=== PATIENT | female | born 1985 | race Caucasian/White ===

== ENCOUNTER → 2016-07-24 | Outpatient (CLI) | payer MEDICAID ==
[~2016-07-24] MED LIST: BIRTH CONTROL PO; DOCU100C37 PO; FAMO20TA3 PO; FERR-84 PO; HYDR-3812 PO; IBUP-1773 PO; PREN1TAB79 PO
--- NOTE | 2016-07-24 17:05 | Diagnostic Imaging Report ---
INDICATION: anatomical evaluation. TECHNIQUE: Multiple real-time grayscale images were obtained of the gravid uterus. CORRELATION STUDY: None. FINDINGS: Cervical length is 4.3 cm. Placenta is anterior and without evidence for previa. Fetus is currently in breech presentation. Normal amount of amniotic fluid appears to be within normal limits. anatomical evaluation is unremarkable. Biometrical measurements are as follows: Biparietal diameter 4.78 cm, age 20 weeks 4 days. Head circumference 18.02 cm, age 20 weeks 4 days. Abdominal circumference 14.83 cm, age 20 weeks 1 day. Femur length 3.29 cm, age 20 weeks 2 days. Sonographic estimated age: 20 weeks 3 days. Sonographic estimated date of delivery: December 08, 2016. heart rate: 143 BPM Estimated Weight: 340 gm (+/- 50 gm) LMP Percentile: 34% IMPRESSION: 1. Single intrauterine in a breech presentation. Sonographic estimated age of 20 weeks 3 days for an estimated date of delivery of December 08, 2016. Dictated by: Dictated on workstation # [id number]
== END ==
LOC: RAD 15:29
PROVIDERS: ATTEND Obstetrics & Gynecology
DX: O32.1XX0 Maternal care for breech presentation, not applicable or unspecified (principal); Z3A.20 20 weeks gestation of pregnancy
CPT/HCPCS: 76805

== ENCOUNTER → 2016-09-06 | Outpatient (CLI) | payer MEDICAID | LOC: LAB 08:26 | PROVIDERS: ATTEND Obstetrics & Gynecology | DX: O99.810 Abnormal glucose complicating pregnancy (principal) | CPT/HCPCS: 36415; 82951; 82952; 82962 ==

== ENCOUNTER 2016-11-22 12:41 | Outpatient (CLI) | payer MEDICAID ==
[~2016-11-22] VITALS: Ht 160 cm; Wt 89.8 kg
[2016-11-22 13:00] VITALS: BP 108/74
[2016-11-22 13:18] LABS: BILIRUBIN,URINE NEGATIVE (NEGATIVE); KETONES,URINE 1+ (NEGATIVE); LEUKOCYTE ESTERASE ,URINE NEGATIVE (NEGATIVE); NITRITE,URINE NEGATIVE (NEGATIVE); PH,URINE 7 (5-9); PROTEIN,URINE NEGATIVE (NEGATIVE); UROBILINOGEN,URINE 1 MG/DL (NORMAL)
[2016-11-22 13:30] VITALS: BP 107/66
[2016-11-22 13:43] LABS: SQUAMOUS EPITHELIAL CELL,UR 0-2 /HPF
[2016-11-22 14:00] VITALS: BP 108/74
[2016-11-22] MEDS ORDERED: FAMO-119 PO ×2 (14:25)
[2016-11-22] MEDS ORDERED: CEPH-506 PO ×2 (14:26)
[2016-11-22 14:30] VITALS: BP 112/67
--- NOTE | 2016-11-23 14:04 | Physician Query-Final Dx ---
ALLEN WU 11/23/16 1404: Clinic Account Progress/Dx Physician Query: Please give diagnosis Date of Service Nov 22, 2016 at 12:41 KIMBERLEY RESTREPO MD 11/23/16 2127: Clinic Account Progress/Dx DIAGNOSIS: Diagnosis Urinary tract infection, third trimester ALLEN WU Nov 23, 2016 14:04 KIMBERLEY RESTREPO MD Nov 23, 2016 21:27
[2016-12-03] MEDS ORDERED: HYDR-3812 PO (08:56)
[2016-12-03] MEDS ORDERED: IBUP-1773 PO (08:56)
[2016-12-03] MEDS ORDERED: DOCU100C37 PO (08:56)
== END 2016-11-22 14:30 | disposition home or self-care (01) ==
LOC: WSo 12:41 → LDRP 12:42 → WSo 14:30
PROVIDERS: ATTEND Obstetrics & Gynecology
DX: Z3A.36 36 weeks gestation of pregnancy; O23.43 Unspecified infection of urinary tract in pregnancy, third trimester
CPT/HCPCS: 81000; 87088; 99213

== ENCOUNTER 2016-11-26 13:27 | Outpatient (CLI) | payer MEDICAID ==
[~2016-11-26] VITALS: Ht 160 cm; Wt 89.9 kg
[~2016-11-26 13:27] MED LIST changes: +CEPH-506 PO; +FAMO-119 PO
[2016-11-26] MEDS ORDERED: GLYB1.253 PO (13:42)
[2016-11-26] MEDS ORDERED: DOCU-143 PO (13:42)
[2016-11-26] MEDS ORDERED: FERR-84 PO (13:42)
[2016-11-26 13:47] VITALS: BP 120/76
== END 2016-11-26 14:18 | disposition home or self-care (01) ==
LOC: PREOP 13:27
PROVIDERS: ATTEND Obstetrics & Gynecology
DX: Z01.818 Encounter for other preprocedural examination (principal); Z11.2 Encounter for screening for other bacterial diseases; O34.211 Maternal care for low transverse scar from previous cesarean delivery
CPT/HCPCS: 87081

== ENCOUNTER 2016-12-03 06:14 | Inpatient (IN) | payer MEDICAID ==
[~2016-12-03] VITALS: Ht 160 cm; Wt 88.6 kg
[~2016-12-03 06:14] MED LIST changes: +CITRIC ACID/SOB CIT (BICITRA) 30 ML UDC ONE; +DOCU-143 PO; +FAMOTIDINE 20MG/2ML IV (PEPCID) ONE; +GLYB1.253 PO; +LACTATED RINGERS 2,000 ML IV ONE; +METOCLOPRAMIDE INJ 10 MG/2 ML (REGLAN) ONE
[2016-12-03 06:20] VITALS: BP 119/72
[2016-12-03] MEDS ORDERED: LACTATED RINGERS 1,000 ML IV PRN ×2 (06:21)
[2016-12-03] MEDS ORDERED: OXYTOCIN/NORMAL SALINE 1,000 ML IV ONE (06:25)
[2016-12-03] MEDS ORDERED: ONDANSETRON 4 MG/2 ML (SDV) Z0FRAN ONE (06:25)
[2016-12-03] MEDS ORDERED: CITRIC ACID/SOB CIT (BICITRA) 30 ML UDC PO ONE (06:30)
[2016-12-03] MEDS ORDERED: FAMOTIDINE 20MG/2ML IV (PEPCID) IV ONE (06:30)
[2016-12-03] MEDS ORDERED: METOCLOPRAMIDE INJ 10 MG/2 ML (REGLAN) IV ONE (06:30)
[2016-12-03] MEDS ORDERED: CATHETER FLUSH 10 ML SYR IV PRN (06:30)
[2016-12-03] MEDS ORDERED: ceFAZolin 2 GM/50 ML NS 50 ML IV ONE ×2 (06:30→06:45)
[2016-12-03 06:37] LABS: BASOPHILS % (AUTO) 0 % (0-10); EOSINOPHILS # (AUTO) 0.1 10^3/uL (0.0-0.3); EOSINOPHILS % (AUTO) 1 % (0-10); LYMPHOCYTES # (AUTO) 3.1 X 10^3 (1.0-4.0); LYMPHOCYTES % (AUTO) 34 % (12-44); MEAN CORPUSCULAR HEMOGLOBIN 29 PG (25-34); MEAN CORPUSCULAR HGB CONC 33 G/DL (32-36); MEAN CORPUSCULAR VOLUME 90 FL (80-99); MEAN PLATELET VOLUME 10.8 FL (7.4-10.4); MONOCYTES # (AUTO) 0.5 X 10^3 (0.0-1.0); MONOCYTES % (AUTO) 6 % (0-12); NEUTROPHILS # (AUTO) 5.3 X 10^3 (1.8-7.8); NEUTROPHILS % (AUTO) 60 % (42-75); PLATELET COUNT 217 10^3/uL (130-400); RED BLOOD COUNT 4.02 10^6/uL (4.35-5.85); RED CELL DISTRIBUTION WIDTH 14.4 % (10.0-14.5)
[2016-12-03] MEDS ORDERED: fentaNYL INJECTION 100 MCG/2 ML AMP ONE (07:00)
[2016-12-03] MEDS ORDERED: morphine PF (DURAMORPH) 10 MG/10 ML AMP ONE (07:00)
[2016-12-03] MEDS ORDERED: LACTATED RINGERS 1,000 ML IV ONE (07:12)
[2016-12-03] MEDS ORDERED: ONDANSETRON 4 MG/2 ML (SDV) Z0FRAN IV PRN (07:15)
[2016-12-03] MEDS ORDERED: fentaNYL INJECTION 100 MCG/2 ML AMP INJ ONE (07:15)
[2016-12-03] MEDS ORDERED: morphine PF (DURAMORPH) 10 MG/10 ML AMP INJ ONE (07:15)
[2016-12-03] MEDS ORDERED: NALOXONE 0.4 MG/ML 1 ML (NARCAN) VIAL IV PRN (07:15)
--- NOTE | 2016-12-03 07:24 | History & Physical-OB ---
OB - Chief Complaint & HPI Date/Time Date of Admission: Date of Admission: Dec 03, 2016 at 6:14 am Time Seen by Provider: 07:19 Chief Complaint/History OB-Reason for Admission/Chief: Section Hx : 2 Hx Para: 1 Expected Date of Delivery: Dec 08, 2016 Gestational Age in Weeks: 39 Gestational Age in Days: 2 Indication for : desires repeat Admission Nurse Assessment Rev: Yes History of Labs O pos Antibody neg RI RPR NR HBsAg NR HIV NR GC neg GBS neg Allergies and Home Medications Allergies Coded Allergies: Sulfa (Sulfonamide Antibiotics) (Verified Allergy, Intermediate, HIVES, ) bacitracin (Verified Allergy, Intermediate, HIVES, 11/26/16) neomycin (Verified Allergy, Intermediate, HIVES, 11/26/16) polymyxin B (Verified Allergy, Intermediate, HIVES, 11/26/16) Home Medications Docusate Sodium 100 Mg Capsule, 100 MG PO DAILY, (Reported) Famotidine 20 Mg Tablet, 20 MG PO BID, (Reported) Ferrous Sulfate 325 Mg Tablet, 325 MG PO DAILY, (Reported) Ferrous Sulfate 325 Mg Tablet, 325 MG PO DAILY, (Reported) Glyburide 1.25 Mg Tablet, 1.25 MG PO EVENING, (Reported) Vit W-Ca,Fe,FA(<1 mg) 1 Each Tablet, 1 EACH PO DAILY, (Reported) OB - History Hx of Present Care: Yes Ultrasounds: Normal mid trimester US Obstetrical Complications: Gestational Diabetes (GDMA1) Medical Complications: None Delivery History Hx Blood Disorders: No Adverse Rxn to Tranfusion: No Patient Past Medical History none Social History/Family History HIV/AIDS: No Recent Infectious Disease Expo: No Sexually Transmitted Disease: No Alcohol Use: Denies Use Recreational Drug Use: No Immunizations Tetanus Booster (TDap): Less than 5yrs Date of Influenza Vaccine: Mar 31, 2015 OB - Admission Exam Physical Exam Date Seen by Provider: Dec 03, 2016 Time Seen by Provider: 07:29 Vitals: Vital Signs 12/03/16 06:20 Temp 98.2 Pulse 115 Resp 20 B/P (MAP) 119/72 O2 Delivery Room Air HEENT: NCAT Heart: Rhythm Normal Lungs: Clear Abdomen: Gravid Extremities: Normal Reflexes: Normal Effacement: 75% Station: -1 Membranes: Intact Heart Rate: 130's Accelerations: Accelerations Present Decelerations: No Decelerations Short Term Variability: Present Supervisor Varnish Variability: Average (6-25) Contractions on Admission: >10 Minutes Apart Intensity: Mild Labs Laboratory Tests Test 12/03/16 06:25 12/03/16 06:32 Range/Units White Blood Count 9.0 4.3-11.0 10^3/uL Red Blood Count 4.02 L 4.35-5.85 10^6/uL Hemoglobin 11.8 11.5-16.0 G/DL Hematocrit 36 35-52 % Mean Corpuscular Volume 90 80-99 FL Mean Corpuscular Hemoglobin 29 25-34 PG Mean Corpuscular Hemoglobin Concent 33 32-36 G/DL Red Cell Distribution Width 14.4 10.0-14.5 % Platelet Count 217 130-400 10^3/uL Mean Platelet Volume 10.8 H 7.4-10.4 FL Neutrophils (%) (Auto) 60 42-75 % Lymphocytes (%) (Auto) 34 12-44 % Monocytes (%) (Auto) 6 0-12 % Eosinophils (%) (Auto) 1 0-10 % Basophils (%) (Auto) 0 0-10 % Neutrophils # (Auto) 5.3 1.8-7.8 X 10^3 Lymphocytes # (Auto) 3.1 1.0-4.0 X 10^3 Monocytes # (Auto) 0.5 0.0-1.0 X 10^3 Eosinophils # (Auto) 0.1 0.0-0.3 10^3/uL Basophils # (Auto) 0.0 0.0-0.1 10^3/uL Glucometer 86 70-110 MG/DL OB - Assessment/Plan/Diagnosis Assessment Assessment: section Plan Plan: Section Discharge Diagnosis Diagnosis: 31 yo @ 39.2 Previous x 1 GDMA1 GBS neg MONY HEART DO Dec 03, 2016 7:24 am
[2016-12-03] MEDS ORDERED: OXYTOCIN/NORMAL SALINE 500 ML IV SCH (07:32)
[2016-12-03] MEDS ORDERED: HYDROmorphone (DILAUDID) 2 MG/ML VIAL IVP PRN (07:45)
[2016-12-03] MEDS ORDERED: TETANUS,DIPTH,PERTUSS P/F (BOOSTRIX) 0.5 ML VIAL IM SCH (07:45)
[2016-12-03] MEDS ORDERED: ONDANSETRON 4 MG/2 ML (SDV) Z0FRAN IVP PRN (07:45)
[2016-12-03] MEDS ORDERED: MEASLES,MUMPS,RUBELLA 1 EA INJ SC SCH (07:45)
[2016-12-03] MEDS: KETOROLAC 30 MG/ML VIAL IVP SCH ×3 (08:15→20:29)
--- NOTE | 2016-12-03 08:42 | Progress Note-Post Operative ---
Post-Operative Progess Note Surgeon (s)/Research Program Internship (s) Surgeon MONY HEART DO Research Program Internship: Emma Zuleta [employer] Pre-Operative Diagnosis 39.2 week IUP, Previous , GDMA2 Post-Operative Diagnosis same Procedure & Operative Findings Date of Procedure 12/03/16 Procedure Performed/Findings 12/03/16 Procedure Performed/Findings UOP: 200 mL Fluid 1000 ml LR EBL: 500 Findings: live female weight 8lbs 10 oz, APGARs 9, grossly normal uterus, tubes and ovaries Patient was taken the operating room where spinal analgesia is under adequate she's placed in the supine position with leftward tilt prepped and draped in normal sterile fashion. Anesthesia is tested and found to be adequate, timeout was performed. I then proceeded with making a Pfannenstiel skin incision through the previously existing scar using the knife and carried down to the underlying fascia using Bovie cautery. The fascial incision is extended laterally using Bovie cautery, I then grasped the superior aspect of the fascial incision using [place] clamps and tented upward and dissected off of the underlying rectus muscles. In a similar fashion, the inferior margin of the rectus fascia is grasped with [place] clamps and tented upward and dissected under lying rectus muscles. The rectus and pyramidalis muscles are then dissected in the midline using Merrill scissors exposing the peritoneum. the peritoneum is then entered bluntly and the peritoneal incision extended superiorly and inferiorly using Metzenbaum scissors with good visualization of underlying bladder and bowel. I then placed the Enrique ring retractor into the peritoneal incision which offers excellent lateral sidewall retraction. I identified the lower uterine segment which is found to be thinned out and make a low-transverse incision through the vesicouterine peritoneum using the knife and dissected off of the lower uterine segment cranial bladder flap. Myotomy is then continued until membranes are visualized which at that point I extend the uterine incision laterally and superiorly using bandage scissors the infant is found in the pelvis and I'm able to elevate the infant's head up to the incision and bulb suction the nares and oropharynx the anterior posterior shoulders were delivered and the infantis then brought out onto the operative field. The cord is then doubly clamped and cut and the infant is handed off to nurses in attendance. Cord blood is collected. Three-vessel cord with intact placenta is delivered spontaneously thereafter. IV Pitocin is initiated to facilitate uterine contraction. Uterus becomes firm with bimanual massage. The uterus is then exteriorized and cleared of all endometrial clots and debris. I then closed the uterine incision using 0 Vicryl suture in a running locked fashion, a second layer of imbricating 0 Monocryl was placed and excellent hemostasis is noted after doing so. I then placed the uterus back within the pelvis and copiously irrigated the pelvis using normal saline. There is no active bleeding noted from any my dissection planes. I placed Interceed anti-adhesive over my low transverse incision, and proceed to closing the peritoneum using 3-0 Vicryl suture in a running fashion. The rectus muscles are reapproximated using 3-0 Vicryl suture in interrupted fashion. The fascia is reapproximated using 0 Vicryl suture in a running fashion. the subcutaneous tissue is reapproximated using 30 plain in interrupted subcutaneous stitch. And the skin is reapproximated using 4-0 Monocryl in a running subcuticular. Dermabond is applied to the incision and a sterile dressing is that he is a white tape. The patient tolerated the procedure well and is taken to the recovery area in stable condition. Lap and sponge count is correct at the end of the procedure and she may count is correct as well. 2 g of Ancef was given preoperatively for infection prophylaxis. Anesthesia Type spinal Estimated Blood Loss Estimated blood loss (mL): 500 Specimens/Packing Specimens Removed placenta MONY HEART Dec 03, 2016 8:42 am
[2016-12-03] MEDS ORDERED: DOCU100C37 PO (08:56)
[2016-12-03] MEDS ORDERED: HYDR-3812 PO (08:56)
[2016-12-03] MEDS ORDERED: IBUP-1773 PO (08:56)
--- NOTE | 2016-12-03 08:57 | Discharge Inst-Women's Service ---
Discharge Inst-Women's Serv Depart Medication/Instructions New, Converted or Re-Newed RX: RX on Chart Consults/Follow Up Additional Follow Up: Yes Orders/Referrals Dr. Rodriguez in 7-10 days and in 6 weeks Activity Activity: Activity as Tolerated Driving Instructions: No Driving for 1 Week NO SMOKING: NO SMOKING Nothing Inside Vagina: No Douching, No Canby, No Tampons Diet Discharge Diet: No Restrictions Symptoms to Report to : Bleeding Excessive, Pain Increased, Fever Over 101 Degrees F, Vaginal Bleeding Increase, Questions/Concerns For Any Problems or Questions: Contact Your Physician Skin/Wound Care Infection Signs and Symptoms: Increased Redness, Foul Odor of Wound, Increased Drainage, Skin Itchy or Has a Rash, Increased Swelling, Temperature Above 101 F Operative Area Clean and Dry: Keep Incision Clean/Dry Stitches/Fernando/Dermabond: Dermabond, Care of Stitches Bathing Instructions: MONY Rodriguez DO Dec 03, 2016 8:57 am
[2016-12-03] MEDS: DOCUSATE SODIUM 100 MG (COLACE) CAP PO SCH ×2 (09:00→20:29)
[2016-12-03 09:55] VITALS: BP 105/65
[2016-12-03] MEDS: HYDROcodone/APAP 5 MG/325 MG (LORTAB) TAB PO PRN ×4 (10:33→22:50)
[2016-12-03 12:31] VITALS: BP 109/72
[2016-12-03 16:04] VITALS: BP 106/70
[2016-12-03 20:25] VITALS: BP 117/75
[2016-12-04 00:10] VITALS: BP 98/63
[2016-12-04] MEDS: KETOROLAC 30 MG/ML VIAL IVP SCH (02:14)
[2016-12-04 04:36] VITALS: BP 102/68
[2016-12-04] MEDS: HYDROcodone/APAP 5 MG/325 MG (LORTAB) TAB PO PRN ×4 (05:00→23:07)
[2016-12-04 06:50] LABS: BASOPHILS % (AUTO) 0 % (0-10); EOSINOPHILS # (AUTO) 0.1 10^3/uL (0.0-0.3); EOSINOPHILS % (AUTO) 1 % (0-10); LYMPHOCYTES % (AUTO) 31 % (12-44); MEAN CORPUSCULAR HEMOGLOBIN 29 PG (25-34); MEAN CORPUSCULAR HGB CONC 32 G/DL (32-36); MEAN CORPUSCULAR VOLUME 92 FL (80-99); MEAN PLATELET VOLUME 10.1 FL (7.4-10.4); MONOCYTES # (AUTO) 0.6 X 10^3 (0.0-1.0); MONOCYTES % (AUTO) 6 % (0-12); NEUTROPHILS % (AUTO) 62 % (42-75); PLATELET COUNT 200 10^3/uL (130-400); RED BLOOD COUNT 3.93 10^6/uL (4.35-5.85); RED CELL DISTRIBUTION WIDTH 14.6 % (10.0-14.5); WHITE BLOOD COUNT 9.7 10^3/uL (4.3-11.0)
[2016-12-04] MEDS: IBUPROFEN 600 MG (MOTRIN) TAB PO SCH ×3 (07:57→19:42)
[2016-12-04] MEDS: DOCUSATE SODIUM 100 MG (COLACE) CAP PO SCH ×2 (07:57→20:59)
[2016-12-04 08:02] VITALS: BP 112/77
--- NOTE | 2016-12-04 09:35 | Progress Note-Standard ---
Standard Progress Note Progress Notes/Assess & Plan Date Seen by Provider: Dec 04, 2016 Time Seen by Provider: 07:45 Progress/Assessment & Plan Patient doing well POD 1 RLTCS. Reports good pain control. Ambulating and voiding freely. Lochia mod. Vital Sign - Last 24 Hours 12/03/16 12/03/16 12/03/16 12/03/16 09:55 12:31 16:04 20:25 Temp 97.0 97.1 97.4 97.2 Pulse 64 97 70 95 Resp 18 18 18 16 B/P (MAP) 105/65 109/72 106/70 117/75 Pulse Ox 100 98 97 98 O2 Delivery Room Air Room Air Room Air Room Air 12/04/16 12/04/16 00:10 04:36 Temp 97.5 97.4 Pulse 111 72 Resp 16 16 B/P (MAP) 98/63 102/68 Pulse Ox 97 96 O2 Delivery Room Air Room Air Intake and Output 12/03/16 12/03/16 12/04/16 15:00 23:00 07:00 Intake Total 1550 ml 1940 ml 1800 ml Output Total 875 ml 1525 ml 2850 ml Balance 675 ml 415 ml -1050 ml Incision : c/d/i Abd: soft/ nd Laboratory Tests Test 12/04/16 06:25 12/04/16 06:26 Range/Units White Blood Count 9.7 4.3-11.0 10^3/uL Red Blood Count 3.93 L 4.35-5.85 10^6/uL Hemoglobin 11.5 11.5-16.0 G/DL Hematocrit 36 35-52 % Mean Corpuscular Volume 92 80-99 FL Mean Corpuscular Hemoglobin 29 25-34 PG Mean Corpuscular Hemoglobin Concent 32 32-36 G/DL Red Cell Distribution Width 14.6 H 10.0-14.5 % Platelet Count 200 130-400 10^3/uL Mean Platelet Volume 10.1 7.4-10.4 FL Neutrophils (%) (Auto) 62 42-75 % Lymphocytes (%) (Auto) 31 12-44 % Monocytes (%) (Auto) 6 0-12 % Eosinophils (%) (Auto) 1 0-10 % Basophils (%) (Auto) 0 0-10 % Neutrophils # (Auto) 6.0 1.8-7.8 X 10^3 Lymphocytes # (Auto) 3.0 1.0-4.0 X 10^3 Monocytes # (Auto) 0.6 0.0-1.0 X 10^3 Eosinophils # (Auto) 0.1 0.0-0.3 10^3/uL Basophils # (Auto) 0.0 0.0-0.1 10^3/uL Glucometer 84 70-110 MG/DL Diagnosis: POD 1 RLTCS GDMA2- FBS wnl P: Continue routine PO care Anticipate dc tomorrow MONY HEART DO Dec 04, 2016 9:35 am
--- NOTE | 2016-12-04 10:59 | Anesthesia-Regional Post-Op ---
Regional Patient Condition Mental Status: Alert, Oriented x3 Circulation: Same as Pre-Op Headache: Absent Sensation: Full Recovery Motor Block: Absent Post Op Complications Complications None Follow Up Care/Instructions Patient Instructions None needed. Anesthesia/Patient Condition Patient is doing well, no complaints, stable vital signs, no apparent adverse anesthesia problems. No complications reported per nursing. BALJEET MILAN CRNA Dec 04, 2016 10:59
[2016-12-04 15:55] VITALS: BP 116/76
[2016-12-04 21:04] VITALS: BP 107/74
[2016-12-05] MEDS: HYDROcodone/APAP 5 MG/325 MG (LORTAB) TAB PO PRN ×2 (03:05→09:07)
[2016-12-05] MEDS: IBUPROFEN 600 MG (MOTRIN) TAB PO SCH ×2 (03:05→09:06)
[2016-12-05 03:06] VITALS: BP 115/78
[2016-12-05 09:00] VITALS: BP 125/83
[2016-12-05] MEDS: DOCUSATE SODIUM 100 MG (COLACE) CAP PO SCH (09:07)
--- NOTE | 2016-12-05 11:38 | Postpartum Progress Note ---
Post Op Post-operative Day #2 Subjective: Patient is without complaints. Ambulating, voiding after cohen removed. Tolerating a regular diet without nausea or vomiting. Normal lochia. Pain is well controlled with oral pain medications. Passing flatus. [] feeding. [] Objective: Vital Sign - Last 12Hours 12/05/16 12/05/16 03:06 09:00 Temp 98.3 98.6 Pulse 81 85 Resp 18 18 B/P (MAP) 115/78 125/83 Pulse Ox 98 O2 Delivery Room Air Room Air Physical Exam: General - Alert and oriented, no apparent distress Abdomen - Soft, appropriately tender to palpation, non-distended, fundus firm at umbilicus Incision - clean, dry and intact; no erythema or induration, no drainage Extremities - no edema, negative Carin's bilaterally [] Assessment: [] post-operative day # [], status post []. Recovering well, hemodynamically stable Acute blood loss anemia [] Plan: Routine post-operative care. Encourage breast feeding. Encourage ambulation. VTE prophylaxis: SCDs. Ferrous sulfate supplementation. Plan for discharge [] Vitals - Labs Vital Signs - I&O Vital Signs Date Time Temp Pulse Resp B/P (MAP) Pulse Ox O2 Delivery O2 Flow Rate FiO2 12/05/16 09:00 98.6 85 18 125/83 98 Room Air 12/05/16 03:06 98.3 81 18 115/78 Room Air 12/04/16 21:04 98.5 88 18 107/74 Room Air 12/04/16 15:55 97.8 87 18 116/76 Room Air ADRIANNA WADSWORTH DO Dec 05, 2016 11:38
[2016-12-05 13:30] VITALS: BP 125/83
== END 2016-12-05 13:30 | disposition home or self-care (01) | DRG 766 ==
LOC: LDRP 06:14 → 3RD 12-04 12:17 → LDRP 12-04 12:17 → 3RD 12-04 12:20
PROVIDERS: ADMIT Obstetrics & Gynecology; ATTEND Obstetrics & Gynecology
PROC: 10D00Z1 Extraction of Products of Conception, Low, Open Approach (ICD-10-PCS; principal; 2016-12-03 07:20)
DX: O24.425 Gestational diabetes mellitus in childbirth, controlled by oral hypoglycemic drugs (principal); O34.211 Maternal care for low transverse scar from previous cesarean delivery; Z37.0 Single live birth; Z3A.39 39 weeks gestation of pregnancy; Z23 Encounter for immunization
CPT/HCPCS: 36415; 82962; 85025; 86850; 86900; 86901; 90715; 94664

== ENCOUNTER → 2017-05-20 | Outpatient (CLI) | payer MEDICAID ==
[~2017-05-20] MED LIST changes: +ACHD5005 PO; -CITRIC ACID/SOB CIT (BICITRA) 30 ML UDC ONE; -FAMOTIDINE 20MG/2ML IV (PEPCID) ONE; -HYDR-3812 PO; -LACTATED RINGERS 2,000 ML IV ONE; -METOCLOPRAMIDE INJ 10 MG/2 ML (REGLAN) ONE
--- NOTE | 2017-05-20 12:03 | Diagnostic Imaging Report ---
PROCEDURE: US Abdomen, limited. TECHNIQUE: Multiple realtime grayscale images were obtained over the abdomen in various projections. INDICATION: Diastasis recti. COMPARISON: There are no previous studies available for comparison. FINDINGS: There is a defect in the anterior abdominal wall just superior to the umbilicus. The defect measures approximately 3.5 cm in maximum transverse diameter. There is no incarceration or obstruction of the bowel in this area, but it does appear that a portion of the mesenteric fat measuring roughly 4 x 6 cm has herniated through the defect into the subcutaneous fat. IMPRESSION: There is a 3.5 cm defect in the anterior abdominal wall just superior to the umbilicus. While there is no incarceration or obstruction of the bowel in this area, a portion of mesenteric fat has extended through this defect. Dictated by: Dictated on workstation # [id number]
== END ==
LOC: RAD 09:53
PROVIDERS: ATTEND Family Medicine
DX: M62.08 Separation of muscle (nontraumatic), other site (principal); R19.06 Epigastric swelling, mass or lump
CPT/HCPCS: 76705

== ENCOUNTER 2017-07-01 05:29 | Outpatient (CLI) | payer MEDICAID ==
[~2017-07-01] VITALS: Ht 160 cm; Wt 81.2 kg
[2017-07-01] MEDS ORDERED: SERT25TA5 PO (10:37)
== END 2017-07-01 10:50 ==
LOC: PREOP 05:29
PROVIDERS: ATTEND Surgery
DX: Z01.818 Encounter for other preprocedural examination (principal); K43.9 Ventral hernia without obstruction or gangrene

== ENCOUNTER 2017-07-05 07:26 | Day surgery (SDC) | payer MEDICAID ==
[~2017-07-05] VITALS: Ht 160 cm; Wt 81.2 kg
[~2017-07-05 07:26] MED LIST changes: +SERT25TA5 PO
--- OUTSIDE RECORDS SUMMARY | 2017-07-05 07:33 | XMS REPORT | Continuity of Care Document ---
Author Author [facility] Address Unknown Phone Unavailable Allergies Active Description Code Type Severity Reaction Onset Reported/Identified Relationship to Patient Clinical Status Yes ANTIBIOTC ANTIBIOTC Moderate HIVES 07/02/2011 Yes bacitracin [id number] Drug Allergy Unknown HIVES 05/06/2015 Yes neomycin [id number] Drug Allergy Unknown HIVES 05/06/2015 Yes polymyxin B [id number] Drug Allergy Unknown HIVES 05/06/2015 Yes Sulfa (Sulfonamide Antibiotics) [id number] Drug Allergy Unknown HIVES 05/06 Yes bacitracin [id number] Drug Allergy Moderate HIVES 11/26/2016 Yes neomycin [id number] Drug Allergy Moderate HIVES 11/26/2016 Yes polymyxin B [id number] Drug Allergy Moderate HIVES 11/26/2016 Yes Sulfa (Sulfonamide Antibiotics) [id number] Drug Allergy Moderate HIVES Medications There is no data. Problems Date Dx Coded Attending Type Code Diagnosis Diagnosed By 07/02/2011 Ot 079.99 VIRAL INFECTION NOS 07/02/2011 Ot 465.9 ACUTE URI NOS 07/02/2011 Ot 780.60 FEVER, UNSPECIFIED 02/09/2014 RAJOTTE JITTERBUG OPERATOR, SAIRA A 692.9 DERMATITIS CONTACT UNSPECIFIED 02/09/2014 RAJOTTE JITTERBUG OPERATOR, SAIRA A 692.9 DERMATITIS CONTACT UNSPECIFIED 02/09/2014 RAJOTTE JITTERBUG OPERATOR, SAIRA A 692.9 DERMATITIS CONTACT UNSPECIFIED 02/23/2014 RAJOTTE JITTERBUG OPERATOR, SAIRA A V04.81 FLU SHOT 02/23/2014 RAJOTTE JITTERBUG OPERATOR, SAIRA A V04.81 FLU SHOT 04/27/2014 RAJOTTE JITTERBUG OPERATOR, SAIRA A 372.30 CONJUNCTIVITIS UNSPECIFIED 11/06/2014 SHYANNE HERRERA JITTERBUG OPERATOR Ot V22.0 12/19/2014 SHYANNE HERRERA JITTERBUG OPERATOR Ot V22.0 01/03/2015 KP RODRIGUEZ, DONNIE Roberts Ot V22.0 01/09/2015 SHYANNE HERRERA APRN Ot V22.0 01/09/2015 KP RODRIGUEZ, DONNIE Roberts Ot V22.0 01/09/2015 KP RODRIGUEZ, DONNIE Roberts Ot V22.0 03/11/2015 KP RODRIGUEZ, DONNIE Roberts Ot O32.1XX0 04/26/2015 SHYANNE HERRERA APRN Ot V22.0 04/26/2015 KP RODRIGUEZ, DONNIE Roberts Ot V22.0 04/26/2015 KP RODRIGUEZ, DONNIE Roberts Ot O32.1XX0 04/26/2015 Ot O32.1XX0 04/26/2015 Ot Z3A.00 05/06/2015 SHYANNE HERRERA APRN Ot V22.0 05/06/2015 KP RODRIGUEZ, DONNIE Roberts Ot V22.0 05/06/2015 KP RODRIGUEZ, DONNIE Roberts Ot O32.1XX0 05/06/2015 Ot O32.1XX0 05/06/2015 Ot Z3A.00 05/08/2015 Ot O32.1XX0 05/08/2015 Ot Z3A.00 05/09/2015 MONY HEART DO Ot D62 ACUTE POSTHEMORRHAGIC ANEMIA 05/09/2015 MONY HEART DO Ot O32.1XX0 MATERNAL CARE FOR BREECH PRESENTATION, U 05/09/2015 MONY HEART DO Ot O41.03X0 OLIGOHYDRAMNIOS, THIRD TRIMESTER, NOT AP 05/09/2015 MONY HEART DO Ot O90.81 ANEMIA OF THE PUERPERIUM 05/09/2015 MONY HEART DO Ot Z23 ENCOUNTER FOR IMMUNIZATION 05/09/2015 MONY HEART DO Ot Z37.0 SINGLE LIVE 05/09/2015 MONY HEART DO Ot Z3A.39 39 WEEKS GESTATION OF 07/24/2016 SHYANNE HERRERA APRN Ot V22.0 SUPERVIS NORMAL 1ST PREG 07/24/2016 KP RODRIGUEZ, DONNIE Roberts Ot V22.0 SUPERVIS NORMAL 1ST PREG 07/24/2016 KP RODRIGUEZ, DONNIE Roberts Ot O32.1XX0 MATERNAL CARE FOR BREECH PRESENTATION, U 07/24/2016 Ot O32.1XX0 MATERNAL CARE FOR BREECH PRESENTATION, U 07/24/2016 Ot Z3A.00 WEEKS OF GESTATION OF NOT SPEC 07/27/2016 UNA JOSHUAOMNY Ot O32.1XX0 MATERNAL CARE FOR BREECH PRESENTATION, U 07/27/2016 AVEECH DO, MONY Scales Ot Z3A.20 20 WEEKS GESTATION OF 07/30/2016 UNA JOSHUAMONY Ot O32.1XX0 MATERNAL CARE FOR BREECH PRESENTATION, U 07/30/2016 AVEECH DO, MONY Scales Ot Z3A.20 20 WEEKS GESTATION OF 08/04/2016 AVEECH DO, MONY Scales Ot O32.1XX0 MATERNAL CARE FOR BREECH PRESENTATION, U 08/04/2016 AVEECH DOMONY Ot Z3A.20 20 WEEKS GESTATION OF 08/17/2016 UNA JOSHUAMONY Ot O32.1XX0 MATERNAL CARE FOR BREECH PRESENTATION, U 08/17/2016 AVEJOANNA JOSHUAMONY Ot Z3A.20 20 WEEKS GESTATION OF 09/08/2016 MONY HEART DO Ot O99.810 ABNORMAL GLUCOSE COMPLICATING 09/09/2016 MONY HEART DO Ot O99.810 ABNORMAL GLUCOSE COMPLICATING 09/18/2016 MONY HEART DO Ot O99.810 ABNORMAL GLUCOSE COMPLICATING 11/22/2016 KAYE RODRIGUEZ, KIMBERLEY Roberts Ot O23.43 UNSP INFCT OF URINARY TRACT IN 11/22/2016 KIMBERLEY RESTREPO MD Ot Z3A.36 36 WEEKS GESTATION OF 11/27/2016 MONY HEART DO Ot O34.211 MATERN CARE FOR LOW TRANSVERSE SCAR FROM 11/27/2016 MONY HEART DO Ot Z01.818 ENCOUNTER FOR OTHER PREPROCEDURAL EXAMIN 11/27/2016 MONY HEART DO Ot Z11.2 ENCOUNTER FOR SCREENING FOR OTHER BACTER 12/05/2016 MONY HEART DO Ot 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, 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 12/05/2016 MONY HEART DO Ot O34.211 MATERN CARE FOR LOW TRANSVERSE SCAR FROM 12/05/2016 MONY HEART DO Ot Z23 ENCOUNTER FOR IMMUNIZATION 12/05/2016 MONY HEART DO Ot Z37.0 SINGLE LIVE 12/05/2016 FENJOANNA DOMONY Ot Z3A.39 39 WEEKS GESTATION OF 05/26/2017 ELIZABETH RODRIGUEZ, MARTHA Mauro Ot M62.08 SEPARATION OF MUSCLE (NONTRAUMATIC), OT 05/26/2017 MARTHA JOHNSON MD Ot R19.06 EPIGASTRIC SWELLING, MASS OR LUMP 06/03/2017 MARTHA JOHNSON MD, Ot M62.08 SEPARATION OF MUSCLE (NONTRAUMATIC), OT 06/03/2017 MARTHA JOHNSON MD, Ot R19.06 EPIGASTRIC SWELLING, MASS OR LUMP Procedures Code Description Performed By Performed On 34H56O1 EXTRACTION OF POC, LOW CERVICAL, OPEN AP 05/06/201588K39X1 EXTRACTION OF POC, LOW CERVICAL, OPEN AP 12/03/2016 Results Test Result Range Capillary blood glucose measurement by glucometer (mass/volume) - 09/06/16 08: 38 Capillary blood glucose measurement by glucometer (mass/volume) 97 mg/dL 70-110 Serum or plasma glucose measurement 3 hours post challenge (mass/volume) - 08:44 Serum or plasma glucose measurement 3 hours post challenge (mass/volume) NRG Complete urinalysis with reflex to culture - 11/22/16 13:00 Urine color determination YELLOW NRG Urine clarity determination CLEAR NRG Urine pH measurement by test strip 7 5-9 Specific gravity of urine by test strip 1.010 1.016- 1.022 Urine protein assay by test strip, semi-quantitative NEGATIVE NEGATIVE Urine glucose detection by automated test strip NEGATIVE NEGATIVE Erythrocytes detection in urine sediment by light microscopy 1+ NEGATIVE Urine ketones detection by automated test strip 1+ NEGATIVE Urine nitrite detection by test strip NEGATIVE NEGATIVE Urine total bilirubin detection by test strip NEGATIVE NEGATIVE Urine urobilinogen measurement by automated test strip (mass/volume) 1 mg/dL NORMAL Urine leukocyte esterase detection by dipstick NEGATIVE NEGATIVE Automated urine sediment erythrocyte count by microscopy (number/high power field) [HPF] NRG Automated urine sediment leukocyte count by microscopy (number/high power field ) NONE NRG Bacteria detection in urine sediment by light microscopy FEW NRG Squamous epithelial cells detection in urine sediment by light microscopy 0-2 NRG Crystals detection in urine sediment by light microscopy NONE NRG Casts detection in urine sediment by light microscopy NONE NRG Mucus detection in urine sediment by light microscopy NEGATIVE NRG Complete urinalysis with reflex to culture YES NRG Bacterial urine culture - 11/22/16 13:00 URINE CULTURE RESULTS <10,000/ML NRG Methicillin resistant Staphylococcus aureus (MRSA) screening culture - 14:00 Methicillin resistant Staphylococcus aureus (MRSA) screening culture NEG NRG Complete blood count (CBC) with automated white blood cell (WBC) differential - 12/03/16 06:25 Blood leukocytes automated count (number/volume) 9.0 10*3/uL 4.3-11.0 Blood erythrocytes automated count (number/volume) 4.02 10*6/uL 4.35-5.85 Venous blood hemoglobin measurement (mass/volume) 11.8 g/dL 11.5-16.0 Blood hematocrit (volume fraction) 36 % 35-52 Automated erythrocyte mean corpuscular volume 90 [foz_us] 80-99 Automated erythrocyte mean corpuscular hemoglobin (mass per erythrocyte) 29 pg 25-34 Automated erythrocyte mean corpuscular hemoglobin concentration measurement ( mass/volume) 33 g/dL 32-36 Automated erythrocyte distribution width ratio 14.4 % 10.0-14.5 Automated blood platelet count (count/volume) 217 10*3/uL 130-400 Automated blood platelet mean volume measurement 10.8 [foz_us] 7.4-10.4 Automated blood neutrophils/100 leukocytes 60 % 42-75 Automated blood lymphocytes/100 leukocytes 34 % 12-44 Blood monocytes/100 leukocytes 6 % 0-12 Automated blood eosinophils/100 leukocytes 1 % 0-10 Automated blood basophils/100 leukocytes 0 % 0-10 Blood neutrophils automated count (number/volume) 5.3 10*3 1.8-7.8 Blood lymphocytes automated count (number/volume) 3.1 10*3 1.0-4.0 Blood monocytes automated count (number/volume) 0.5 10*3 0.0-1.0 Automated eosinophil count 0.1 10*3/uL 0.0-0.3 Automated blood basophil count (count/volume) 0.0 10*3/uL 0.0-0.1 Blood type T Indirect antibody screen panel - 12/03/16 06:25 ABO+Rh group OP NRG Transfusion band number [id number] NRG Blood group antibody screen NEGATIVE NRG Capillary blood glucose measurement by glucometer (mass/volume) - 12/03/16 06: 32 Capillary blood glucose measurement by glucometer (mass/volume) 86 mg/dL 70-110 Complete blood count (CBC) with automated white blood cell (WBC) differential - 12/04/16 06:25 Blood leukocytes automated count (number/volume) 9.7 10*3/uL 4.3-11.0 Blood erythrocytes automated count (number/volume) 3.93 10*6/uL 4.35-5.85 Venous blood hemoglobin measurement (mass/volume) 11.5 g/dL 11.5-16.0 Blood hematocrit (volume fraction) 36 % 35-52 Automated erythrocyte mean corpuscular volume 92 [foz_us] 80-99 Automated erythrocyte mean corpuscular hemoglobin (mass per erythrocyte) 29 pg 25-34 Automated erythrocyte mean corpuscular hemoglobin concentration measurement ( mass/volume) 32 g/dL 32-36 Automated erythrocyte distribution width ratio 14.6 % 10.0-14.5 Automated blood platelet count (count/volume) 200 10*3/uL 130-400 Automated blood platelet mean volume measurement 10.1 [foz_us] 7.4-10.4 Automated blood neutrophils/100 leukocytes 62 % 42-75 Automated blood lymphocytes/100 leukocytes 31 % 12-44 Blood monocytes/100 leukocytes 6 % 0-12 Automated blood eosinophils/100 leukocytes 1 % 0-10 Automated blood basophils/100 leukocytes 0 % 0-10 Blood neutrophils automated count (number/volume) 6.0 10*3 1.8-7.8 Blood lymphocytes automated count (number/volume) 3.0 10*3 1.0-4.0 Blood monocytes automated count (number/volume) 0.6 10*3 0.0-1.0 Automated eosinophil count 0.1 10*3/uL 0.0-0.3 Automated blood basophil count (count/volume) 0.0 10*3/uL 0.0-0.1 Capillary blood glucose measurement by glucometer (mass/volume) - 12/04/16 06: 26 Capillary blood glucose measurement by glucometer (mass/volume) 84 mg/dL 70-110 Encounters ACCT No. Visit Date/Time Discharge Status Pt. Type Provider Facility Loc./Unit Complaint [id number] 04/27/2014 09:06:00 04/27/2014 23:59:59 CLS Outpatient SAIRA MIJARES APRN [id number] 02/23/2014 09:46:00 02/23/2014 23:59:59 CLS Outpatient SAIRA MIJARES APRN [id number] 02/09/2014 10:21:00 02/09/2014 23:59:59 CLS Outpatient SAIRA MIJARES APRN [id number] 05/20/2017 09:53:00 05/20/2017 23:59:59 CLS Outpatient MARTHA JOHNSON MD [facility] RAD M62.08 [id number] 12/03/2016 06:14:00 12/05/2016 13:30:00 DIS Inpatient MONY HEART DO [facility] LDRP PREVIOUS SECTION [id number] 11/26/2016 13:27:00 11/26/2016 14:18:00 DIS Outpatient MONY HEART DO [facility] PREOP PREVIOUS SECTION [id number] 11/22/2016 12:41:00 11/22/2016 14:30:00 DIS Outpatient KIMBERLEY RESTREPO MD [facility] WSo UTI [id number] 09/06/2016 08:26:00 09/06/2016 23:59:59 CLS Outpatient MONY HEART DO [facility] LAB ABNORMAL GLUCOSE TOLERANCE [id number] 07/24/2016 15:29:00 07/24/2016 23:59:59 CLS Outpatient MONY HEART DO [facility] RAD [id number] 05/06/2015 07:05:00 05/09/2015 16:05:00 DIS Inpatient MONY HEART DO [facility] LDRP [id number] 02/15/2015 12:46:00 02/15/2015 23:59:59 CLS Outpatient DONNIE GOODRICH MD [facility] RAD FOLLOW FOR POOR VISUALIZATION FOR STRUCTURES [id number] 12/19/2014 10:34:00 12/19/2014 23:59:59 CLS Outpatient DONNIE GOODRICH MD [facility] RAD NORMAL 1ST [id number] 10/15/2014 09:59:00 10/15/2014 23:59:59 CLS Outpatient JAVIER, SHYANNE A JITTERBUG OPERATOR [facility] RAD NORMAL 1ST [id number] 04/24/2015 10:54:00 Document Registration [id number] 07/02/2011 16:35:00 Document Registration
[2017-07-05 07:45] VITALS: BP 111/76
[2017-07-05] MEDS ORDERED: ceFAZolin 1 GM/NS 50 ML IVPB IV ONE ×2 (07:45)
[2017-07-05] MEDS ORDERED: CATHETER FLUSH 10 ML SYR IV PRN (07:45)
[2017-07-05] MEDS ORDERED: LACTATED RINGERS 0 ML IV ONE (07:59)
[2017-07-05] MEDS ORDERED: ROCURONIUM 50 MG/5 ML (ZEMURON) VIAL IV ONE (07:59)
[2017-07-05] MEDS ORDERED: ONDANSETRON 4 MG/2 ML (SDV) Z0FRAN ONE ×2 (07:59→10:24)
[2017-07-05] MEDS ORDERED: LIDOCAINE PF 2% 5 ML (XYLOCAINE) VIAL ONE (07:59)
[2017-07-05] MEDS ORDERED: MIDAZOLAM 2 MG/2 ML (VERSED) VIAL ONE (07:59)
[2017-07-05] MEDS ORDERED: proPOfol 200 MG/20 ML (DIPRIVAN) VIAL IV ONE (07:59)
[2017-07-05] MEDS: LACTATED RINGERS 1,000 ML IV PRN ×2 (08:00→09:45)
[2017-07-05] MEDS ORDERED: SEVOFLURANE (ULTANE) 15 ML INHAL SOLN ONE ×5 (08:06→09:33)
[2017-07-05] MEDS ORDERED: fentaNYL INJECTION 250 MCG/5 ML AMP ONE (08:06)
[2017-07-05 08:09] LABS: BASOPHILS % (AUTO) 0 % (0-10); EOSINOPHILS # (AUTO) 0.2 10^3/uL (0.0-0.3); EOSINOPHILS % (AUTO) 2 % (0-10); HEMATOCRIT 38 % (35-52); HEMOGLOBIN 12.7 G/DL (11.5-16.0); LYMPHOCYTES # (AUTO) 3.1 X 10^3 (1.0-4.0); LYMPHOCYTES % (AUTO) 35 % (12-44); MEAN CORPUSCULAR HEMOGLOBIN 30 PG (25-34); MEAN CORPUSCULAR HGB CONC 34 G/DL (32-36); MEAN CORPUSCULAR VOLUME 87 FL (80-99); MEAN PLATELET VOLUME 9.1 FL (7.4-10.4); MONOCYTES # (AUTO) 0.6 X 10^3 (0.0-1.0); MONOCYTES % (AUTO) 7 % (0-12); NEUTROPHILS # (AUTO) 5.1 X 10^3 (1.8-7.8); NEUTROPHILS % (AUTO) 56 % (42-75); PLATELET COUNT 300 10^3/uL (130-400); RED BLOOD COUNT 4.29 10^6/uL (4.35-5.85); RED CELL DISTRIBUTION WIDTH 12.9 % (10.0-14.5); WHITE BLOOD COUNT 9.1 10^3/uL (4.3-11.0)
[2017-07-05] MEDS ORDERED: LIDOCAINE 1% INJ 20 ML (XYLOCAINE) VIAL ONE (08:13)
[2017-07-05] MEDS ORDERED: BUPIVACAINE 0.5% 30 ML (SENSORCAINE) VIAL ONE (08:13)
[2017-07-05] MEDS ORDERED: FAMOTIDINE 20MG/2ML IV (PEPCID) IV ONE (08:15)
[2017-07-05] MEDS ORDERED: ceFAZolin INJECTION 1,000 MG in NS (IVPB) 50 ML IV ONE (08:15)
[2017-07-05] MEDS ORDERED: ONDANSETRON 4 MG/2 ML (SDV) Z0FRAN IV ONE (08:15)
--- NOTE | 2017-07-05 08:47 | Progress Note-Pre Operative ---
Pre-Operative Progress Note H&P Reviewed The H&P was reviewed, patient examined and no changes noted. Date Seen by Provider: Jul 05, 2017 Time Seen by Provider: 08:30 Date H&P Reviewed: Jul 05, 2017 Time H&P Reviewed: 08:30 Pre-Operative Diagnosis: incarcerated ventral hernia PARUL COX DO Jul 05, 2017 08:47
[2017-07-05] MEDS ORDERED: GLYCOPYRROLATE 0.2 MG/ML (ROBINUL) 2 ML VIAL ONE (09:34)
[2017-07-05] MEDS ORDERED: NEOSTIGMINE (BLOXIVERZ ) 1 MG/1ML 10 ML VIAL ONE (09:34)
--- NOTE | 2017-07-05 10:04 | Progress Note-Post Operative ---
Post-Operative Progess Note Surgeon (s)/Type Copy Examiner (s) Surgeon PARUL COX DO Type Copy Examiner: Dr. Deluna Pre-Operative Diagnosis incarcerated ventral hernia Post-Operative Diagnosis same Procedure & Operative Findings Date of Procedure 07/05/17 Procedure Performed/Findings lap ventral hernia repaired Anesthesia Type gen Estimated Blood Loss Estimated blood loss (mL): min Specimens/Packing Specimens Removed na PARUL COX DO Jul 05, 2017 10:04
[2017-07-05] MEDS ORDERED: ACHD5005 PO (10:06)
[2017-07-05] MEDS ORDERED: DOCU-143 PO (10:06)
--- NOTE | 2017-07-05 10:08 | Discharge Inst-Simple/Standard ---
Discharge Inst-Standard Discharge Medications New, Converted or Re-Newed RX: RX on Chart Patient Instructions/Follow Up Plan of Care/Instructions/FU: 2 weeks Parsons Activity as Tolerated: No Discharge Diet: Regular Diet Other Inst to Patient Follow up Appt: Make appointment for 2 week. Instructions: No lifting greater than 10 pounds. No strenuous activity. May shower in 24 hours, no tub bath or soaking. Use incentive spirometer at home as directed. No Smoking Skin/Wound Care: You have special glue over incisions it will fall off on its own. Symptoms to Report: Appetite Changes, Extremity Discoloration, Numbness/Tingling, Swelling Increased , Bleeding Excessive, Eyesight Changes, Pain Increased, Urine Color Change, Constipation(Persistent), Fever over 101 degree F, Pain/Pressure in chest, Urinating Difficulty, Cough Up/Vomit Blood, Heart Beat Irreg/Pounding, Pain/ Pressure in jaw, Vaginal Bleeding Increase, Cramps in feet or legs, Lightheadedness, Pain/Pressure in shoulder, Diarrhea(Persistent), Memory Changes Suddenly, Questions/Concerns, Weight gain consecutive days, Dizziness/ Fainting, Nausea/Vomiting, Shortness of Breath, Weight gain over 2 pounds If questions or concerns contact your physician Or seek help at emergency department. PARUL PARSONS DO Jul 05, 2017 10:08
[2017-07-05] MEDS ORDERED: HYDROmorphone (DILAUDID) 2 MG/ML VIAL ONE (10:24)
[2017-07-05] MEDS: HYDROmorphone (DILAUDID) 2 MG/ML VIAL IVP PRN ×3 (10:25→10:45)
[2017-07-05] MEDS ORDERED: ONDANSETRON 4 MG/2 ML (SDV) Z0FRAN IVP PRN (10:30)
[2017-07-05] MEDS ORDERED: morphine INJ 10 MG/ML 1ML (SYR OR VIAL) IVP PRN (10:30)
[2017-07-05] MEDS ORDERED: MEPERIDINE (DEMEROL) INJ 50 MG/ML IVP PRN (10:30)
[2017-07-05] MEDS ORDERED: PROMETHAZINE INJ 25 MG/ML (PHENERGAN) AMP IVP PRN (10:30)
[2017-07-05 11:05] VITALS: BP 101/84
[2017-07-05 11:06] VITALS: BP 101/84
[2017-07-05] MEDS ORDERED: HYDROcodone/APAP 5 MG/325 MG (LORTAB) TAB PO ONE (11:15)
[2017-07-05 11:35] VITALS: BP 109/81
[2017-07-05 12:05] VITALS: BP 112/78
--- NOTE | 2017-07-05 15:42 | OPERATIVE REPORT ---
DATE OF SERVICE: 07/05/2017 PREOPERATIVE DIAGNOSIS: Incarcerated ventral hernia. POSTOPERATIVE DIAGNOSIS: Incarcerated ventral hernia. PROCEDURE: Laparoscopic pressured hernia repair using Echo 4.5 inch mesh. SURGEON: Parul Parsons DO INSPECTOR GLASS OR MIRROR: Dr. España, assisted in retraction, dissection and closure. ESTIMATED BLOOD LOSS: Minimal. COMPLICATIONS: None. INDICATIONS: The patient is a 32-year-old female with an incarcerated hernia. She understands risks and benefits of procedure and wished to proceed with the procedure. Consent was signed and in the chart. DESCRIPTION OF PROCEDURE: The patient was taken to the operating suite. She was prepped and draped in sterile fashion. Surgical pause was performed. Local anesthetic was infiltrated before incisions were made. A #11 blade scalpel was used to make a small 5 mm incision. Veress needle was inserted in the abdomen and pneumoperitoneum was achieved. Under direct visualization of the laparoscope, a 5 mm trocar was then placed. Abdomen was inspected. A 5 mm trocar was placed in the right lower quadrant and a 12 mm trocar was placed in the left lower quadrant. The hernia contents were reduced and LigaSure was used to take down the falciform. The defect was then closed using 0 Vicryl with a Vidal-Sharmila and a 4.5 Echo mesh was then inserted into the abdomen and grasped through a stab incision and a SecureStrap Tacker was then used to attach the mesh circumferentially. The balloon was then removed and an inner crown was created as well. The 12 mm fascial defect was then closed using 0 Vicryl with a Vidal-Sharmila. The abdomen was then desufflated, the trocars were removed. Skin was then closed using 4-0 Monocryl in a subcuticular fashion. The area was washed and dried and Dermabond was placed over the incisions. The patient tolerated the procedure well without any complications. She was taken to the recovery room in stable condition. Job ID: [id number] DocumentID: [id number] Dictated Date: 07/05/2017 10:20:47 Training And Development Manager Date: 07/05/2017 15:41:35 Dictated By: PARUL PARSONS DO
== END 2017-07-05 12:35 | disposition home or self-care (01) ==
LOC: SDC 07:26
PROVIDERS: ATTEND Surgery
DX: K43.6 Other and unspecified ventral hernia with obstruction, without gangrene (principal); Z11.2 Encounter for screening for other bacterial diseases; F17.210 Nicotine dependence, cigarettes, uncomplicated
CPT/HCPCS: 36415; 84703; 85025; 87081

== ENCOUNTER → 2021-09-08 | Outpatient (CLI) | payer MEDICAID ==
[~2021-09-08] MED LIST changes: +SERT-412 PO; -SERT25TA5 PO
[2021-09-08 14:24] LABS: BASOPHILS % (AUTO) 0 % (0-10); EOSINOPHILS # (AUTO) 0.1 10^3/uL (0.0-0.3); EOSINOPHILS % (AUTO) 1 % (0-10); HEMATOCRIT 38 % (35-52); HEMOGLOBIN 12.5 g/dL (11.5-16.0); LYMPHOCYTES # (AUTO) 2.5 10^3/uL (1.0-4.0); LYMPHOCYTES % (AUTO) 26 % (12-44); MEAN CORPUSCULAR HEMOGLOBIN 29 pg (25-34); MEAN CORPUSCULAR HGB CONC 33 g/dL (32-36); MEAN CORPUSCULAR VOLUME 89 fL (80-99); MEAN PLATELET VOLUME 9.2 fL (9.0-12.2); MONOCYTES # (AUTO) 0.4 10^3/uL (0.0-1.0); MONOCYTES % (AUTO) 4 % (0-12); NEUTROPHILS # (AUTO) 6.4 10^3/uL (1.8-7.8); NEUTROPHILS % (AUTO) 69 % (42-75); PLATELET COUNT 380 10^3/uL (130-400); WHITE BLOOD COUNT 9.4 10^3/uL (4.3-11.0)
[2021-09-08 14:26] LABS: BILIRUBIN,URINE NEGATIVE (NEGATIVE); CLARITY,URINE SL CLOUDY; COLOR,URINE YELLOW; GLUCOSE, URINE (UA) NEGATIVE (NEGATIVE); KETONES,URINE TRACE (NEGATIVE); LEUKOCYTE ESTERASE ,URINE NEGATIVE (NEGATIVE); NITRITE,URINE NEGATIVE (NEGATIVE); PROTEIN,URINE NEGATIVE (NEGATIVE)
[2021-09-08 14:45] LABS: BACTERIA,URINE LARGE /HPF
[2021-09-08 14:47] LABS: AMORPHOUS SEDIMENT,UR FEW AMOR URATES /LPF; RBC,URINE RARE /HPF
[2021-09-08 21:53] LABS: HEPATITIS C ANTIBODY C Non-Reactive (Non-Reactive)
== END ==
LOC: LABNPT 13:50
PROVIDERS: ATTEND Obstetrics & Gynecology
DX: Z36.89 Encounter for other specified antenatal screening (principal)
CPT/HCPCS: 81000; 84702; 85025; 86703; 86762; 86780; 86803; 86850; 86900; 86901; 87088; 87340

== ENCOUNTER → 2021-12-11 | Outpatient (CLI) | payer BC, MEDICAID ==
--- NOTE | 2021-12-11 17:53 | Diagnostic Imaging Report ---
INDICATION: . Anatomic survey. TECHNIQUE: Multiple real-time grayscale images were obtained over the gravid uterus. COMPARISON: None. FINDINGS: There is a single live intrauterine gestation in cephalic presentation. The cervix measures 4.9 cm, and there is no evidence of funneling. The placenta is posterior. There is no evidence of previa. The placenta does not appear to be low lying, measured at about 5 cm from the internal os. The heart rate measures 156 BPM. The amniotic fluid appears normal. A vertical pocket is seen which measures 3.9 cm. The cerebellum and cisterna magna appear normal. The lateral ventricles are normal. The bladder is seen. There are two umbilical arteries consistent with a three-vessel cord. The cord insertion is seen. The upper and lower spine are seen. The left and right ventricular outflow tracts are seen. The kidneys are seen. The profile is seen. A four-chamber heart is not well seen. This is due to lie and maternal body habitus. Biometrical measurements are as follows: Biparietal 4.89 cm, age 20 weeks 6 days. Head circumference 18.30 cm, age 20 weeks 5 days. Abdominal circumference 14.36 cm, age 19 weeks 5 days. Femur length 3.20 cm, age 20 weeks 0 days. Sonographic estimate age: 20 weeks 3 days. Sonographic estimated date of delivery: 04/27/2022. Estimated Weight: 322 gm (+/- 47 gm). LMP percentile: 42%. heart rate: 156 beats per minute. number: 1 of 1. IMPRESSION: 1. Single live intrauterine gestation measuring at 20 weeks and 3 days which is within range of the clinical dates. 2. Anatomic survey with no abnormality seen. The four-chamber heart is not well seen. Dictated by: Dictated on workstation # [id number]
== END ==
LOC: RAD 11:34
PROVIDERS: ATTEND Nurse Practitioner Women's Health
DX: Z34.82 Encounter for supervision of other normal pregnancy, second trimester (principal); Z3A.20 20 weeks gestation of pregnancy
CPT/HCPCS: 76805

== ENCOUNTER 2022-04-06 05:30 | Outpatient (CLI) | payer BC, MEDICAID ==
[~2022-04-06] VITALS: Ht 160 cm; Wt 89.5 kg
[2022-04-06] MEDS ORDERED: DULO20CA19 PO (08:55)
[2022-04-06] MEDS ORDERED: GLYB1.253 PO (09:03)
[2022-04-06] MEDS ORDERED: GLBR2.5T PO (09:03)
[2022-04-06] MEDS ORDERED: BUPR150T24 PO (09:10)
[2022-04-06] MEDS ORDERED: FAMO20TA3 PO (09:10)
[2022-04-08] MEDS ORDERED: ACHD5005 PO (09:30)
[2022-04-08] MEDS ORDERED: DOCU100C37 PO (09:31)
[2022-04-08] MEDS ORDERED: IBUP-844 PO (09:31)
== END 2022-04-06 09:30 ==
LOC: PREOP 05:30
PROVIDERS: ATTEND Obstetrics & Gynecology
DX: Z01.818 Encounter for other preprocedural examination (principal)

== ENCOUNTER 2022-04-08 06:57 | Inpatient (IN) | payer MEDICAID ==
[~2022-04-08] VITALS: Ht 160 cm; Wt 88.4 kg
[2022-04-08] VITALS (12 sets, daily range): BP systolic 54–132; BP diastolic 46–89
[~2022-04-08 06:57] MED LIST changes: +BUPR150T24 PO; +DULO20CA19 PO; +GLBR2.5T PO
[2022-04-08] MEDS ORDERED: ceFAZolin INJECTION 2,000 MG in NS (IVPB) 50 ML IV ONE (08:00)
[2022-04-08] MEDS ORDERED: METOCLOPRAMIDE INJ 10 MG/2 ML (REGLAN) IV ONE (08:15)
[2022-04-08] MEDS ORDERED: CATHETER FLUSH 10 ML SYR IV PRN (08:15)
[2022-04-08] MEDS ORDERED: LACTATED RINGERS 1,000 ML IV PRN (08:15)
[2022-04-08] MEDS ORDERED: CITRIC ACID/SOB CIT (BICITRA) 30 ML UDC PO ONE (08:15)
[2022-04-08] MEDS ORDERED: FAMOTIDINE 20MG/2ML IV (PEPCID) IV ONE (08:15)
[2022-04-08 08:23] LABS: BASOPHILS % (AUTO) 0 % (0-10); EOSINOPHILS # (AUTO) 0.1 10^3/uL (0.0-0.3); EOSINOPHILS % (AUTO) 1 % (0-10); HEMATOCRIT 35 % (35-52); HEMOGLOBIN 11.4 g/dL (11.5-16.0); LYMPHOCYTES # (AUTO) 2.2 10^3/uL (1.0-4.0); LYMPHOCYTES % (AUTO) 25 % (12-44); MEAN CORPUSCULAR HEMOGLOBIN 28 pg (25-34); MEAN CORPUSCULAR HGB CONC 33 g/dL (32-36); MEAN CORPUSCULAR VOLUME 87 fL (80-99); MEAN PLATELET VOLUME 10.9 fL (9.0-12.2); MONOCYTES # (AUTO) 0.4 10^3/uL (0.0-1.0); MONOCYTES % (AUTO) 5 % (0-12); NEUTROPHILS # (AUTO) 6.2 10^3/uL (1.8-7.8); NEUTROPHILS % (AUTO) 69 % (42-75); PLATELET COUNT 193 10^3/uL (130-400); WHITE BLOOD COUNT 8.9 10^3/uL (4.3-11.0)
--- NOTE | 2022-04-08 08:43 | History & Physical-OB ---
ANDREW WILLARD 04/08/22 0843: OB - Chief Complaint & HPI Date/Time Date of Admission: Date of Admission: Apr 08, 2022 at 07:20 Date seen by a Provider: Apr 08, 2022 Time Seen by a Provider: 08:28 Chief Complaint/History OB-Reason for Admission/Chief: Rupture of Membranes Hx : 3 Hx Para: 2 Gestational Age in Weeks: 37 Indication for : desires repeat Other Jocelyne Boston is a Rh+ 37yo female with past medical history of GDM and Breech presentaiton leading to section. Pt presents today due to rupture of membranes at 37 wks gestation. Pt reports rupture of membranes occurred at 6am this morning while she was sleeping. States consistency was cloudy but denies any blood or abnormal discharge. Pt has had gestational diabetes the last two pregnancies, and this has been poorly controlled. Pt states that she has had alejandro pelayo contractions but denies fever, chills, and pain out of the ordinary. Allergies and Home Medications Allergies Coded Allergies: Sulfa (Sulfonamide Antibiotics) (Verified Allergy, Intermediate, HIVES, 04/06/22) bacitracin (Verified Allergy, Intermediate, HIVES, 04/06/22) neomycin (Verified Allergy, Intermediate, HIVES, 04/06/22) polymyxin B (Verified Allergy, Intermediate, HIVES, 04/06/22) Patient Home Medication List Home Medication List Reviewed: Yes Bupropion HCl (Bupropion Xl) 150 Mg Tab.er.24h, 150 MG PO DAILY, (Reported) Entered as Reported by: CHANDU EVANS on 04/06/22 0910 Duloxetine HCl (Duloxetine HCl) Unknown Strength Capsule., Unknown Dose PO, (Reported) Entered as Reported by: CHANDU EVANS on 04/06/22 0855 Famotidine (Acid Medical Economics Consultant (FAMOTIDINE)) 20 Mg Tablet, 20 MG PO BID, (Reported) Entered as Reported by: CHANDU EVANS on 04/06/22 0910 Glyburide (Glyburide) 1.25 Mg Tablet, 1.25 MG PO DAILY, (Reported) Entered as Reported by: CHANDU EVANS on 04/06/22 0903 Glyburide (Glyburide) 2.5 Mg Tablet, 2.5 MG PO EVENING, (Reported) Entered as Reported by: CHANDU EVANS on 04/06/22 0903 Hydrocodone Bit/Acetaminophen (Lortab 5 Mg Tablet) 1 Tab Tab, 1 TAB PO Q4H PRN Prescribed by: PARUL COX on 07/05/17 1006 Discontinued Medications Docusate Sodium (Colace) 100 Mg Capsule, 100 MG PO DAILY Discontinued Reason: No Longer Taking Prescribed by: PARUL COX on 07/05/17 1006 Vit W-Ca,Fe,FA(<1 mg) ( Vitamins) 1 Each Tablet, 1 EACH PO DAILY, (Reported) Discontinued Reason: No Longer Taking Entered as Reported by: RICHARD ARMAS on 05/06/15 0817 Sertraline HCl (Sertraline HCl) 25 Mg Tablet, 25 MG PO DAILY, (Reported) Discontinued Reason: No Longer Taking Entered as Reported by: JOHN BARRIOS on 07/01/17 1037 OB - History Hx of Present Care: Yes Medical Complications: Gastrointestinal (GDM) Information Induced Hypertension: No Maternal Gestational Diabetes: Yes Hemorrhage: No Obstetrical History Hx : 3 Hx Para: 2 Hx # Term Pregnancies: 2 Number of Living Children: 2 Hx Termination: No Hx Multiple Gestation: No Hx Ectopic : No Hx Stillbirth: No Hx Complication: No Hx Induced Hypertens: No Hx Maternal Gestational Diabet: Yes Hx Hemorrhage: No Delivery History Hx Section: Yes Hx Blood Disorders: No Adverse Rxn to Tranfusion: No Patient Past Medical History Jocelyne Boston, has a past medical history of GDM and breech presentation leading to low transverse . Pt denies other past medical history; Pts surgical history includes hiatal hernia repair, tonsilectomy, and . Social History/Family History Alcohol Use: Denies Use Recreational Drug Use: No Smoking Cessation: Former smoker (Quit March 2020) 2nd Hand Smoke Exposure: No Immunizations First/Initial COVID19 Vaccine: 05/07/2020 Second COVID19 Vaccination: 06/05/2020 Tetanus Booster (TDap): Less than 5yrs Rubella: immune RPR/VDRL: Negative GBS Status: Negative HBsAG: Negative OB - Admission Exam Physical Exam Vitals: Vital Signs 04/08/22 07:15 Temp 36.3 Pulse 83 Resp 18 Pulse Ox 98 O2 Delivery Room Air Heart: Rhythm Normal Lungs: Clear Abdomen: Gravid Extremities: Normal Membranes: Ruptured Amniotic Fluid: Clear Labs Laboratory Tests Test 04/08/22 07:45 Range/Units White Blood Count 8.9 4.3-11.0 10^3/uL Red Blood Count 4.01 3.80-5.11 10^6/uL Hemoglobin 11.4 L 11.5-16.0 g/dL Hematocrit 35 35-52 % Mean Corpuscular Volume 87 80-99 fL Mean Corpuscular Hemoglobin 28 25-34 pg Mean Corpuscular Hemoglobin Concent 33 32-36 g/dL Red Cell Distribution Width 14.3 10.0-14.5 % Platelet Count 193 130-400 10^3/uL Mean Platelet Volume 10.9 9.0-12.2 fL Immature Granulocyte % (Auto) 0 % Neutrophils (%) (Auto) 69 42-75 % Lymphocytes (%) (Auto) 25 12-44 % Monocytes (%) (Auto) 5 0-12 % Eosinophils (%) (Auto) 1 0-10 % Basophils (%) (Auto) 0 0-10 % Neutrophils # (Auto) 6.2 1.8-7.8 10^3/uL Lymphocytes # (Auto) 2.2 1.0-4.0 10^3/uL Monocytes # (Auto) 0.4 0.0-1.0 10^3/uL Eosinophils # (Auto) 0.1 0.0-0.3 10^3/uL Basophils # (Auto) 0.0 0.0-0.1 10^3/uL Immature Granulocyte # (Auto) 0.0 0.0-0.1 10^3/uL OB - Assessment/Plan/Diagnosis Assessment Assessment: rupture of membranes Admission Dx Rupture of Membranes at 37wks Admission Status: Inpatient Order (span 2 midnights) Reason for Inpatient Admission: Section Plan Plan: Section UNADEZ Yordy DO 04/08/22 0919: Allergies and Home Medications Allergies Coded Allergies: Sulfa (Sulfonamide Antibiotics) (Verified Allergy, Intermediate, HIVES, 04/06/22) bacitracin (Verified Allergy, Intermediate, HIVES, 04/06/22) neomycin (Verified Allergy, Intermediate, HIVES, 04/06/22) polymyxin B (Verified Allergy, Intermediate, HIVES, 04/06/22) Patient Home Medication List Bupropion HCl (Bupropion Xl) 150 Mg Tab.er.24h, 150 MG PO DAILY, (Reported) Entered as Reported by: CHANDU EVANS on 04/06/22 09 Duloxetine HCl (Duloxetine HCl) Unknown Strength Capsule.dr, Unknown Dose PO, (Reported) Entered as Reported by: CHANDU EVANS on 04/06/22 0855 Famotidine (Acid Medical Economics Consultant (FAMOTIDINE)) 20 Mg Tablet, 20 MG PO BID, (Reported) Entered as Reported by: CHANDU EVANS on 04/06/22 09 Glyburide (Glyburide) 1.25 Mg Tablet, 1.25 MG PO DAILY, (Reported) Entered as Reported by: CHANDU EAVNS on 04/06/22 09 Glyburide (Glyburide) 2.5 Mg Tablet, 2.5 MG PO EVENING, (Reported) Entered as Reported by: CHANDU EVANS on 04/06/22 09 Hydrocodone Bit/Acetaminophen (Lortab 5 Mg Tablet) 1 Tab Tab, 1 TAB PO Q4H PRN Prescribed by: PARUL COX on 07/05/17 1006 Discontinued Medications Docusate Sodium (Colace) 100 Mg Capsule, 100 MG PO DAILY Discontinued Reason: No Longer Taking Prescribed by: PARUL COX on 07/05/17 1006 Vit W-Ca,Fe,FA(<1 mg) ( Vitamins) 1 Each Tablet, 1 EACH PO DAILY, (Reported) Discontinued Reason: No Longer Taking Entered as Reported by: RICHARD ARMAS on 05/06/15 0817 Sertraline HCl (Sertraline HCl) 25 Mg Tablet, 25 MG PO DAILY, (Reported) Discontinued Reason: No Longer Taking Entered as Reported by: JOHN BARRIOS on 07/01/17 1037 OB - Assessment/Plan/Diagnosis Plan Other Plan Diagnosis: 37 week IUP Previous SROM GDMA2- unknown control poor monitoring P: RLTCS Verification and Attestation of Medical Student E/M Service A medical student performed and documented this service in my presence. I reviewed and verified all information documented by the medical student and made modifications to such information, when appropriate. I personally performed the physical exam and medical decision making. Dez Rodriguez, Apr 08, 2022,09:18 ANDREW WILLARD Apr 08, 2022 08:43 DEZ RODRIGUEZ DO Apr 08, 2022 09:19
[2022-04-08] MEDS ORDERED: OXYTOCIN PRE-MIX DRIP 1,000 ML IV ONE (08:46)
[2022-04-08] MEDS ORDERED: fentaNYL INJ 100 MCG/2 ML AMP ONE (08:47)
--- NOTE | 2022-04-08 09:22 | Discharge Inst-Women's Service ---
Discharge Inst-Women's Serv Depart Medication/Instructions New, Converted or Re-Newed RX: Transmitted to Pharmacy Final Diagnosis POD 2 RLTCS Problems Reviewed?: Yes Consults/Follow Up Additional Follow Up: Yes Orders/Referrals Dr. Rodriguez in 7-10 days and in 6 weeks Activity Activity: Activity as Tolerated Driving Instructions: No Driving for 1 Week NO SMOKING: NO SMOKING Nothing Inside Vagina: No Douching, No [place], No Tampons Diet Discharge Diet: No Restrictions Symptoms to Report to : Bleeding Excessive, Pain Increased, Fever Over 101 Degrees F, Vaginal Bleeding Increase, Questions/Concerns For Any Problems or Questions: Contact Your Physician Skin/Wound Care Infection Signs and Symptoms: Increased Redness, Foul Odor of Wound, Increased Drainage, Skin Itchy or Has a Rash, Increased Swelling, Temperature Above 101 F Operative Area Clean and Dry: Keep Incision Clean/Dry Stitches/[place]/Dermabond: Dermabond, Care of Stitches Bathing Instructions: MONY Rodriguez DO Apr 08, 2022 09:22
[2022-04-08] MEDS ORDERED: ACHD5005 PO (09:30)
[2022-04-08] MEDS ORDERED: ONDANSETRON 4 MG/2 ML (SDV) Z0FRAN IVP PRN (09:30)
[2022-04-08] MEDS ORDERED: NALOXONE 0.4 MG/ML 1 ML (NARCAN) VIAL IV PRN (09:30)
[2022-04-08] MEDS ORDERED: MEASLES,MUMPS,RUBELLA 1 EA INJ SC SCH (09:30)
[2022-04-08] MEDS ORDERED: TETANUS,DIPTH,PERTUSS P/F (BOOSTRIX) 0.5 ML VIAL IM SCH (09:30)
[2022-04-08] MEDS ORDERED: OXYTOCIN PRE-MIX DRIP 500 ML IV SCH (09:30)
[2022-04-08] MEDS ORDERED: IBUP-844 PO (09:31)
[2022-04-08] MEDS ORDERED: DOCU100C37 PO (09:31)
[2022-04-08] MEDS ORDERED: GLYCOPYRROLATE 0.2 MG/ML (ROBINUL) 2 ML VIAL ONE (09:52)
[2022-04-08] MEDS ORDERED: BUPIVACAINE 0.25% 30 ML (SENSORCAINE) VIAL ONE (10:05)
[2022-04-08] MEDS ORDERED: PHENYLEPHRINE 100 MCG/ML 10 ML (ANESTHESIA) SYR ONE (10:05)
[2022-04-08] MEDS: KETOROLAC 30 MG/ML VIAL IV SCH ×3 (12:06→23:59)
[2022-04-08] MEDS ORDERED: CATHETER FLUSH 10 ML SYR IV SCH (14:00)
[2022-04-08] MEDS: HYDROcodone/APAP 5 MG/325 MG (LORTAB) TAB PO PRN ×2 (14:28→22:05)
[2022-04-08] MEDS: DOCUSATE SODIUM 100 MG (COLACE) CAP PO SCH (20:15)
--- NOTE | 2022-04-08 20:41 | OPERATIVE REPORT ---
PREOPERATIVE DIAGNOSES: 1. A 37-year-old female at 36 weeks and 6 days gestation. 2. Previous section. 3. Spontaneous rupture of membranes with active labor. 4. GDMA 2. POSTOPERATIVE DIAGNOSES: 1. A 37-year-old female at 36 weeks and 6 days gestation. 2. Previous section. 3. Spontaneous rupture of membranes with active labor. 4. GDMA 2. PROCEDURE: Repeat low transverse section. SURGEON: Dez Heart DO ANESTHESIA: Spinal. ESTIMATED BLOOD LOSS: 750 mL URINE OUTPUT: 150 mL, clear at end of the procedure. FLUIDS: 1300 mL lactated Ringer's solution. FINDINGS: Live male infant weighing 7 pounds 2 ounces, Apgars of 7 and 9. Grossly normal appearing uterus, bilateral fallopian tubes and ovaries. SPECIMENS SENT: Placenta. INDICATIONS FOR PROCEDURE: This 37-year-old female presented to the labor unit after rupture of membranes at 6:00 this morning. She had not eaten since the previous night, so we decided to proceed with delivery due to repeat scheduled for Wednesday due to gestational diabetes. Risks of the procedure were discussed with the patient in detail including risk of bleeding, infection, damage to surrounding structures including, but not limited to bowel, bladder, ureter, kidneys, possible need for reoperation, postoperative complications that may occur, recovery time frame, reversed from anesthesia and even . After everything was discussed with the patient, consent was obtained, the patient was taken to the operating room. DESCRIPTION OF PROCEDURE: Once in the operating room, spinal analgesia was found to be adequate, was placed in supine position with leftward tilt, prepped and draped in normal sterile fashion. A timeout was performed. Anesthesia was tested and then make a Pfannenstiel skin incision through the previously existing scar using a knife and carried down to the fascia using Bovie cautery. The fascial incision extended laterally using Bovie cautery. Superior aspect of the fascial incision was then grasped with [place] clamps and the operative site to the operating rectus muscles. The inferior aspect of the fascial incision was then grasped with [place] clamps, tented up and dissected off the rectus muscles. Rectus muscles were dissected down to the midline using sharp dissection, which exposed the peritoneum, which was bluntly extended using blunt traction. Enrique ring retractor was placed in the peritoneal incision, which offers excellent lateral sidewall retraction, identified the lower uterine segment, was found to be thinned out and make a low transverse incision through the vesicouterine peritoneum and bluntly dissected off the lower uterine segment, creating a bladder flap. I then proceeded with myotomy until membranes are visualized, at which point I extended the incision laterally and superiorly using bandage scissors. The membranes were then ruptured using an Allis clamp through the myotomy incision. The was found in vertex presentation with gentle fundal pressure, the 's head was elevated up to the incision where the nares and oropharynx were bulb suctioned. Anterior and posterior shoulders were delivered. The was brought to the operative field where cord was doubly clamped and cut and infant was handed off to waiting nurses in attendance. Cord blood was collected. Three-vessel cord with intact placenta was delivered spontaneously thereafter. IV Pitocin was initiated to facilitate uterine contraction. Uterine fundus confirmed by manual massage. The uterus was exteriorized and cleared of all major clots and debris. I then proceeded with closing the uterine incision using 0 Vicryl suture in a running locked fashion. Second layer of imbricating 0 Monocryl was placed. Excellent hemostasis noted. After doing this, I then placed the uterus back in the pelvis and copiously irrigated the pelvis with normal saline. Once again, there is no active bleeding from my dissection planes. I placed Interceed antiadhesive over a low transverse incision. I removed the Enrique retractor and then proceeded with closing the peritoneum using 3-0 Vicryl suture in a running fashion. The rectus muscles were reapproximated using 3-0 Vicryl suture in interrupted fashion. The fascia was reapproximated using 0 Vicryl suture in a running fashion. The subcutaneous tissue was reapproximated using 3-0 plain interrupted subcutaneous stitch and skin was reapproximated using 4-0 Monocryl in a running subcuticular. Dermabond was applied to incision. Sterile dressings with adhesive white tape. The patient tolerated the procedure well and was taken to the operating room in stable condition. Lap and sponge counts were correct at the end of the procedure. Instrument counts were correct as well. Two grams of Ancef were given preoperatively for infection prophylaxis. Job ID: [id number] DocumentID: [id number] Dictated Date: 04/08/2022 10:29:38 Presser First Date: 04/08/2022 20:39:00 Dictated By: DEZ HEART DO
[2022-04-09] MEDS: HYDROcodone/APAP 5 MG/325 MG (LORTAB) TAB PO PRN ×3 (02:30→14:08)
[2022-04-09 04:20] VITALS: BP 136/88
[2022-04-09] MEDS: KETOROLAC 30 MG/ML VIAL IV SCH (05:14)
[2022-04-09 06:20] LABS: BASOPHILS % (AUTO) 0 % (0-10); EOSINOPHILS # (AUTO) 0.2 10^3/uL (0.0-0.3); EOSINOPHILS % (AUTO) 1 % (0-10); HEMATOCRIT 28 % (35-52); HEMOGLOBIN 9.5 g/dL (11.5-16.0); LYMPHOCYTES # (AUTO) 3.2 10^3/uL (1.0-4.0); LYMPHOCYTES % (AUTO) 30 % (12-44); MEAN CORPUSCULAR HEMOGLOBIN 29 pg (25-34); MEAN CORPUSCULAR HGB CONC 34 g/dL (32-36); MEAN CORPUSCULAR VOLUME 87 fL (80-99); MEAN PLATELET VOLUME 10.6 fL (9.0-12.2); MONOCYTES # (AUTO) 0.5 10^3/uL (0.0-1.0); MONOCYTES % (AUTO) 5 % (0-12); NEUTROPHILS # (AUTO) 6.7 10^3/uL (1.8-7.8); NEUTROPHILS % (AUTO) 63 % (42-75); PLATELET COUNT 166 10^3/uL (130-400); WHITE BLOOD COUNT 10.6 10^3/uL (4.3-11.0)
[2022-04-09 08:50] VITALS: BP 131/93
[2022-04-09] MEDS: DOCUSATE SODIUM 100 MG (COLACE) CAP PO SCH (08:50)
[2022-04-09] MEDS: IBUPROFEN 600 MG (MOTRIN) TAB PO SCH ×2 (11:38→18:00)
--- NOTE | 2022-04-09 14:13 | Postpartum Progress Note ---
Post Op Post-operative Day #1 Subjective: Patient is without complaints. Ambulating, voiding after cohen removed. Tolerating a regular diet without nausea or vomiting. Normal lochia. Pain is well controlled with oral pain medications. Passing flatus. breast feeding. Objective: Vital Signs 04/09/22 08:50 Temp 36.3 Pulse 98 Resp 18 B/P (MAP) 131/93 (106) Pulse Ox 99 O2 Delivery Room Air Physical Exam: General - Alert and oriented, no apparent distress Abdomen - Soft, appropriately tender to palpation, non-distended Incision - clean, dry and intact; no erythema or induration, no drainage Extremities - no edema, negative Carin's bilaterally Assessment: post-operative day # 1, status post repeat delivery. Gestational Diabetes Recovering well, hemodynamically stable Plan: Routine post-operative care. Encourage breast feeding. Encourage ambulation. VTE prophylaxis: SCDs. Ferrous sulfate supplementation. POD#1 POC glucose checks: F93 Plan for discharge when meeting discharge goals Vitals - Labs Vital Signs - I&O Vital Signs Date Time Temp Pulse Resp B/P (MAP) Pulse Ox O2 Delivery O2 Flow Rate FiO2 04/09/22 08:50 36.3 98 18 131/93 (106) 99 Room Air 04/09/22 04:20 36.6 95 18 136/88 (104) 97 Room Air 04/08/22 23:59 36.5 91 18 127/85 (99) 97 Room Air 04/08/22 20:40 36.5 91 18 122/80 (94) 97 Room Air 04/08/22 19:09 Room Air 04/08/22 16:45 36.4 86 18 131/88 (102) 97 Room Air I & O 04/09/22 07:00 Intake Total 3450 ml Output Total 5840 ml Balance -2390 ml Labs Laboratory Tests 04/08/22 22:00: Glucometer 122H 04/09/22 06:00: White Blood Count 10.6, Red Blood Count 3.24L, Hemoglobin 9.5L, Hematocrit 28L, Mean Corpuscular Volume 87, Mean Corpuscular Hemoglobin 29, Mean Corpuscular Hemoglobin Concent 34, Red Cell Distribution Width 14.4, Platelet Count 166, Mean Platelet Volume 10.6, Immature Granulocyte % (Auto) 0, Neutrophils (%) (A uto) 63, Lymphocytes (%) (Auto) 30, Monocytes (%) (Auto) 5, Eosinophils (%) (Auto) 1, Basophils (%) (Auto) 0, Neutrophils # (Auto) 6.7, Lymphocytes # (Auto) 3.2, Monocytes # (Auto) 0.5, Eosinophils # (Auto) 0.2, Basophils # (Auto) 0.0, Immature Granulocyte # (Auto) 0.0 04/09/22 06:02: Glucometer 93 RAGINI CONTRERAS MD Apr 09, 2022 14:13
[2022-04-09 14:21] VITALS: BP 133/86
--- NOTE | 2022-04-09 15:49 | Anesthesia-Regional Post-Op ---
Regional Patient Condition Mental Status: Alert, Oriented x3 Circulation: Same as Pre-Op Headache: Absent Sensation: Full Recovery Motor Block: Absent Post Op Complications Complications None Follow Up Care/Instructions Patient Instructions Patient stated back was sore at or near the puncture site. Back visual assessed. Small area of ecchymosis noted. No redness or discharge. Informed patient if soreness not better in 5 day to follow with anesthesia. Anesthesia/Patient Condition Patient is doing well, no complaints other than noted above, stable vital signs, no apparent adverse anesthesia problems. No complications reported per nursing. EMILIE MOLINA CRNA Apr 09, 2022 15:49
[2022-04-09 20:02] VITALS: BP 121/80
[2022-04-09] MEDS ORDERED: SIMETHICONE 80 MG (MYLICON) CHEW ONE (20:15)
[2022-04-09] MEDS: SIMETHICONE 80 MG (MYLICON) CHEW PO PRN (20:17)
[2022-04-10] MEDS: DOCUSATE SODIUM 100 MG (COLACE) CAP PO SCH ×3 (00:07→22:21)
[2022-04-10] MEDS: HYDROcodone/APAP 5 MG/325 MG (LORTAB) TAB PO PRN (00:07)
[2022-04-10] MEDS: IBUPROFEN 600 MG (MOTRIN) TAB PO SCH ×4 (00:07→18:40)
[2022-04-10 00:10] VITALS: BP 116/87
[2022-04-10 05:53] VITALS: BP 135/90
[2022-04-10 09:00] VITALS: BP 133/81
[2022-04-10] MEDS: SIMETHICONE 80 MG (MYLICON) CHEW PO PRN (09:04)
--- NOTE | 2022-04-10 12:34 | Postpartum Progress Note ---
Post Op Post-operative Day #2 Subjective: Patient is without complaints. Ambulating, voiding without. Tolerating a regular diet without nausea or vomiting. Normal lochia. Pain is well controlled with oral pain medications. Passing flatus. breast feeding. Objective: VS - Last 72 Hours, by Label 04/08/22 04/08/22 04/08/22 04/08/22 07:15 07:50 10:49 10:52 Temp 36.3 36.5 36.0 Pulse 83 90 Resp 18 20 18 B/P (MAP) 124/79 (94) 115/67 (83) Pulse Ox 98 98 O2 Delivery Room Air Room Air Room Air Room Air 04/08/22 04/08/22 04/08/22 04/08/22 11:05 11:05 11:20 11:20 Temp 36.0 36.1 Resp 18 18 B/P (MAP) 113/82 (92) 54/46 (49) Pulse Ox 97 96 O2 Delivery Room Air Room Air Room Air Room Air 04/08/22 04/08/22 04/08/22 04/08/22 11:30 11:34 11:35 11:45 Temp 36.0 Resp 18 18 B/P (MAP) 122/89 (100) 122/85 (97) Pulse Ox 98 96 O2 Delivery Room Air Room Air Room Air Room Air 04/08/22 04/08/22 04/08/22 04/08/22 11:45 12:06 16:45 19:09 Temp 36.0 36.5 36.4 Pulse 86 86 Resp 20 20 18 B/P (MAP) 121/86 (98) 132/88 (103) 131/88 (102) Pulse Ox 97 95 97 O2 Delivery Room Air Room Air Room Air Room Air 04/08/22 04/08/22 04/09/22 04/09/22 20:40 23:59 04:20 08:50 Temp 36.5 36.5 36.6 36.3 Pulse 91 91 95 98 Resp 18 18 18 18 B/P (MAP) 122/80 (94) 127/85 (99) 136/88 (104) 131/93 (106) Pulse Ox 97 97 97 99 O2 Delivery Room Air Room Air Room Air Room Air 04/09/22 04/09/22 04/10/22 04/10/22 14:21 20:02 00:10 05:53 Temp 36.6 36.8 36.8 36.5 Pulse 122 97 110 98 Resp 18 18 18 18 B/P (MAP) 133/86 (102) 121/80 (94) 116/87 (97) 135/90 (105) Pulse Ox 97 98 97 97 O2 Delivery Room Air Room Air Room Air Room Air 04/10/22 09:00 Temp 36.5 Pulse 85 Resp 18 B/P (MAP) 133/81 (98) Pulse Ox 99 O2 Delivery Room Air Physical Exam: General - Alert and oriented, no apparent distress Abdomen - Soft, NTTP, non-distended Incision - clean, dry and intact; mild bruising around incision, No induration or drainage Extremities - no edema, negative Carin's bilaterally Assessment: post-operative day # 2, status post repeat delivery. Gestational Diabetes - Resolved Recovering well, hemodynamically stable Plan: Routine post-operative care. Hgb 9.5g/dL (11.4g/dL pre-op) Encourage breast feeding. Encourage ambulation. VTE prophylaxis: SCDs. Ferrous sulfate supplementation. POD#1 POC glucose checks: F93, PP 118 Plan for discharge today or tomorrow Vitals - Labs Vital Signs - I&O Vital Signs Date Time Temp Pulse Resp B/P (MAP) Pulse Ox O2 Delivery O2 Flow Rate FiO2 04/10/22 09:00 36.5 85 18 133/81 (98) 99 Room Air 04/10/22 05:53 36.5 98 18 135/90 (105) 97 Room Air 04/10/22 00:10 36.8 110 18 116/87 (97) 97 Room Air 04/09/22 20:02 36.8 97 18 121/80 (94) 98 Room Air 04/09/22 14:21 36.6 122 18 133/86 (102) 97 Room Air Labs Laboratory Tests 04/09/22 17:24: Glucometer 118H RAGINI CONTRERAS MD Apr 10, 2022 12:34
--- NOTE | 2022-04-10 12:36 | Short Stay Summary ---
Discharge Summary Hospital Course Was the Problem List Reviewed?: Yes Problems/Dx: (1) GDM, class A2 (2) Status post repeat low transverse section Status: Acute Final Diagnosis: Status post repeat delivery Hospital Course Date of Admission: Apr 08, 2022 at 07:20 Admission Diagnosis : Family Physician/Provider: Leighton Zavala MD Date of Discharge: 04/10/22 Discharge Diagnosis: Spontaneous rupture of Membranes, Hx of previous desiring repeat, A2 Gestational Diabetes Mellitus Hospital Course: Jocelyne Boston is a 37 yo G3 now P3003, who presented to L&D spontaneous rupture of membranes. Patient's [facility] with [facility], and her was complicated by Gestational Diabetes Mellitus-on medications, and Hx of delivery. On presentation, rupture of membranes was confirmed. Vitals signs were stable, physical exam was benign. FHT was reassuring and she was admitted for repeat delivery. Patient underwent a LTCS on 04/08/22, and delivered a living male infant without complications and EBL 750 ml. Infant had Apgars of 7 at 1 minute and 9 at 5 minutes, weighing 7 ponds and 2 ounces. Please see operative report for full details. Patient's course was uncomplicated. On POD#1, she had a Hgb 9.5, and was doing well. On POD, she had mildly elevated blood pressures x2, and was asymptomatic. Patient was otherwise meeting all goals; ambulating without difficulty, appropriate urine output, positive flatus, tolerating diet, minimal lochia, and pain was controlled. Incision was clean, dry, and intact without evidence of infection the day of discharge. Patient was discharged to home on POD #2 in stable medical condition. Patient was given instructions on home blood pressure monitoring, and return precautions provided. Patient is to follow-up in clinic within 1 week for incision and blood pressure follow-up. Labs and Pending Lab Test: Laboratory Tests 04/09/22 17:24: Glucometer 118H Home Meds Active Docusate Sodium 100 Mg Capsule 100 Mg PO BID PRN Ibu (Ibuprofen) 600 Mg Tablet 600 Mg PO Q6H HYDROcodone/APAP 5 MG/325 MG TAB (Acetaminophen/Hydrocodone Bitart) 1 Tab Tab 1-2 Ea PO Q6HR PRN Lortab 5 Mg Tablet (Acetaminophen/Hydrocodone Bitart) 1 Tab Tab 1 Tab PO Q4H PRN Reported Bupropion Xl (Bupropion HCl) 150 Mg Tab.er.24h 150 Mg PO DAILY Acid Tile Picker (FAMOTIDINE) (Famotidine) 20 Mg Tablet 20 Mg PO BID Glyburide 2.5 Mg Tablet 2.5 Mg PO EVENING Glyburide 1.25 Mg Tablet 1.25 Mg PO DAILY Duloxetine HCl Unknown Strength Capsule.dr Unknown Dose PO Assessment/Pt Instructions - Pelvic Rest for 6 weeks; no sex, tampon use, or douching - No lifting greater than 5 to 10 pounds for the next 8 weeks - Return to clinic in 1 week for incision check and blood pressure check - Return to clinic in 6 weeks for visit - Return for temperature >100.4 degrees, vaginal bleeding greater than 2 maxi pads in 1 hour over 4 hours, abdominal pain, intractable nausea or vomiting, headaches that don't go away with treatment, spots in your vision, chest pain/shortness of breath or other concerns. - Keep all follow up appointments. Discharge Instructions Discharge Diet: No Restrictions Activity as Tolerated: Yes Discharge Physical Examination General Appearance: Alert, Oriented X3, Cooperative HEENT: EOMI Cardiovascular: Regular Rate Abdominal: No Masses Skin: No Rashes Neuro: Normal Gait Psych/Mental Status: Mental Status NL Allergies: Coded Allergies: Sulfa (Sulfonamide Antibiotics) (Verified Allergy, Intermediate, HIVES, 04/06/22) bacitracin (Verified Allergy, Intermediate, HIVES, 04/06/22) neomycin (Verified Allergy, Intermediate, HIVES, 04/06/22) polymyxin B (Verified Allergy, Intermediate, HIVES, 04/06/22) Discharge Summary Date of Admission Apr 08, 2022 at 07:20 Date of Discharge Discharge Date: Apr 10, 2022 RAGINI CONTRERAS MD Apr 10, 2022 12:36
[2022-04-10 14:30] VITALS: BP 120/79
[2022-04-10 21:50] VITALS: BP 134/72
[2022-04-11] MEDS: IBUPROFEN 600 MG (MOTRIN) TAB PO SCH ×3 (00:55→12:09)
[2022-04-11 03:13] VITALS: BP 132/84
[2022-04-11 08:30] VITALS: BP 120/75
[2022-04-11] MEDS: HYDROcodone/APAP 5 MG/325 MG (LORTAB) TAB PO PRN (08:49)
[2022-04-11] MEDS: DOCUSATE SODIUM 100 MG (COLACE) CAP PO SCH (08:49)
[2022-04-11 12:11] VITALS: BP 131/85
== END 2022-04-11 13:35 | disposition home or self-care (01) | DRG 788 ==
LOC: WSo 06:57 → LDRP 06:58 → WSo 07:19 → LDRP 07:20
PROVIDERS: ADMIT Obstetrics & Gynecology; ATTEND Obstetrics & Gynecology
PROC: 10D00Z1 Extraction of Products of Conception, Low, Open Approach (ICD-10-PCS; principal; 2022-04-08 09:53)
DX: O34.211 Maternal care for low transverse scar from previous cesarean delivery (principal); Z3A.37 37 weeks gestation of pregnancy; Z37.0 Single live birth; O24.429 Gestational diabetes mellitus in childbirth, unspecified control; Z87.891 Personal history of nicotine dependence
CPT/HCPCS: 36415; 82947; 85025; 86850; 86900; 86901; 94010; 99212